=== PATIENT | female | born 1990 | race Caucasian/White ===

== ENCOUNTER 2017-07-17 09:36 | Emergency (ER) | payer OTHER ==
[~2017-07-17] VITALS: Ht 154.9 cm; Wt 77.1 kg
--- NOTE | 2017-07-17 10:17 | ED GI/GU/ABDOMINAL COMPLAINT ---
History of Present Illness General Chief Complaint: Abdominal Pain/Flank Pain Stated Complaint: ABD PAIN/BLEEDING 6 WEEKS Source: patient Exam Limitations: no limitations Allergies Coded Allergies: No Known Allergies (07/17/17) Triage Note: PT TO ED C/O VAGINAL BLEEDING SINCE THIS AM. STATES SHE IS 6 WEEKS , SEE'S DR HALEY. C/O ABD CRAMPING THAT COMES AND GOES. . Triage Nurses Notes Reviewed? yes ? Y Is pt currently ? No HPI: 27 year old female with PMH significant for PCOS presents with complaints of vaginal bleeding and crampy lower abdominal pain that started this morning. The patient had a recently confirmed , patient of Dr. Haley's. The patient took a home test, estimated 6 weeks by LMP, and had a confirmed intrauterine by transvaginal ultrasound on 07/10/17. No history of STI, or PID. Patient last had sexual intercourse two days prior to presentation. She has had some mild intermittent crampy lower abdominal pain for the past two weeks but this morning she woke up and it was more severe, 7/10, non radiating, currently only a 1/10. The abdominal pain was sudden and severe on awakening this morning approximately 7AM, with no identifiable aggravating factors. The pain seemed to improve on its own but she said she did get some relief with a heating pad. She got up to use the bathroom and noticed pink in the toilet and dark blood when she wiped. She states she didn't saturate the toilet paper but was still bleeding as she continued to wipe. She is currently wearing a pad that has some scant dark dried blood. She denied any blood clots. She did notice some blood in her underwear but because of their dark color it was hard for her to estimate the amount. She has no other complaints at this time but is visibly anxious. (Virgen POLLOCK,Bean) Vital Signs & Intake/Output Vital Signs & Intake/Output Vital Signs Date Time Temp Pulse Resp B/P B/P Pulse O2 O2 Flow FiO2 Mean Ox Delivery Rate 07/17 1304 98.3 74 20 115/89 98 Room Air 07/17 0939 98.5 111 20 128/84 97 Room Air (Una POLLOCK,Avery Chun) Past History Travel History Traveled to [place] past 21 day No Medical History Any Pertinent Medical History? see below for history CAD SPECIALIST/Reproductive: PCOS Surgical History Surgical History: non-contributory, dental extraction Psychosocial History What is your primary language [place]ar[place]uan Tobacco Use: Never used ETOH Use: denies use Illicit Drug Use: denies illicit drug use Family History Hx Contributory? No (Bean New MD) Review of Systems Review of Systems Constitutional: Reports: no symptoms. EENTM: Reports: no symptoms. Respiratory: Reports: no symptoms. Cardiovascular: Reports: no symptoms. GI: Reports: abdominal pain. Genitourinary: Reports: no symptoms. Musculoskeletal: Reports: no symptoms. Skin: Reports: no symptoms. Neurological/Psychological: Reports: anxiety. Hematologic/Endocrine: Reports: bleeding. Immunologic/Allergic: Reports: no symptoms. All Other Systems: Reviewed and Negative (Bean New MD) Physical Exam Physical Exam General Appearance: well developed/nourished, no apparent distress, alert, awake , anxious Head: atraumatic, normal appearance Eyes: Bilateral: normal appearance, PERRL, EOMI. Ears, Nose, Throat, Mouth: hearing grossly normal, moist mucous membrane Respiratory: normal breath sounds, chest non-tender, no respiratory distress, quiet respiration, lungs clear Cardiovascular: regular rate/rhythm, normal peripheral pulses Gastrointestinal: normal bowel sounds, soft, MILD SUPRAPUBIC TENDERNESS ON PALP Pelvic: unable to palpate cervix on bimanual exam, + blood in vaginal vault Extremities: normal range of motion Neurologic/Psych: no motor/sensory deficits, awake, alert, oriented x 3 Core Measures ACS in differential dx? No Sepsis Present: No Sepsis Focused Exam Completed? No (Bean New MD) Progress Differential Diagnosis: ectopic , intrauterine , ovarian cyst, ovarian torsion, PID/cervicitis, threatened AB, miscarriage Initial ED EKG: none Comments: Talked with Shaping Machine Operator Nehal No with Dr. Brown's practice. Ultrasound findings suggestive of threatened in first trimester. Patient will leave [facility] and go to Dr. Brown's office today for further management. (Bean New MD) Plan of Care: Orders Procedure Date/time Status Add-on Test (ER Only) 07/17 1123 Active HUMAN BETA HCG TITRE 07/17 1049 Complete TYPE & SCREEN (NOT X-MATCH) 07/17 1026 Complete PARTIAL THROMBOPLASTIN TIME 07/17 1018 Complete PROTHROMBIN TIME 07/17 1018 Complete CBC WITHOUT DIFFERENTIAL 07/17 1018 Complete BASIC ELECTROLYTES PLUS BUN&CR 07/17 1018 Complete Add-on Test (ER Only) 07/17 1017 Active CULTURE,URINE 07/17 954 Active URINE 07/17 954 Complete URINALYSIS 07/17 954 Complete Laboratory Tests 07/17/17 1049: Anion Gap 13, Estimated GFR > 60, BUN/Creatinine Ratio 15.0, Beta HCG, Quant 1580.2, PT 11.7, INR 1.12, APTT 31, CBC w Diff MAN DIFF ORDERED, RBC 5.05, MCV 85.7, MCH 29.3, RDW 13.3, MPV 9.2, Gran % 72.9, Lymphocytes % 20.0 L, Monocytes % 4.9, Eosinophils % 0.7, Basophils % 1.5, Absolute Granulocytes 11.8 H, Segmented Neutrophils 69, Band Neutrophils 3, Absolute Lymphocytes 3.2, Lymphocytes 25, Monocytes 3, Absolute Monocytes 0.8 H, Absolute Eosinophils 0.1 , Absolute Basophils 0.2, Platelet Estimate VERIFIED BY SMEAR, Normocytic RBCs VERIFIED, Normochromic RBCs VERIFIED, PUBS MCHC 34.2 07/17/17 1026: Beta HCG, Quant Cancelled 07/17/17 09: Urine Test POSITIVE 07/17/17954: Urine Color YEL, Urine Clarity HAZY H, Urine pH 6.5, Ur Specific [place] 1.010, Urine Protein TRACE H, Urine Ketones NEG, Urine Nitrite NEG, Urine Bilirubin NEG, Urine Urobilinogen 0.2, Ur Leukocyte Esterase SMALL H, Ur Microscopic SEDIMENT EXAMINED, Urine RBC 10-15 H, Urine WBC 1-3 H, Ur Epithelial Cells MANY H, Urine Bacteria FEW H, Urine Hemoglobin LARGE H, Urine Glucose NEG Microbiology 07/17 954 URINE ROUT: Urine Culture - RECD Diagnostic Imaging: Discussed w/RAD: Ultrasound. Radiology Impression: PATIENT: VANE HOWELL PRESENT AGE: 27 PATIENT ACCOUNT NO: [id number] : 92 LOCATION: [facility] ORDERING PHYSICIAN: Bean New MD SERVICE DATE: 07/17/17 EXAM TYPE: US - US TRANSVAG EXAMINATION: ULTRASOUND OF THE PELVIS/ ULTRASOUND CLINICAL INFORMATION: Vaginal bleeding. Patient states pelvic cramping for the last few days with onset of vaginal bleeding this morning. COMPARISON: None TECHNIQUE: Transabdominal and transvaginal pelvic ultrasound. A transvaginal study was performed in addition to the transabdominal study which did not yield an adequate examination of the uterus, endometrial stripe, and ovaries due to superimposed distended gas-filled loops of bowel. FINDINGS: Based on the patient 's last menstrual period of 05/31/2017, a 6 week 5 day gestation is expected with an estimated date of delivery of 03/07/2018. Uterus: The uterus is anteverted and normal in size, measuring 9.2 x 2.6 x 2.8 cm. The endometrial stripe thickness in the uterine fundus is normal, measuring 0.5 cm in thickness. In the lower uterine segment, a amorphous mixed echogenicity cystic and solid mass is seen, measuring 1.2 x 0.8 x 1.1 cm in size. This may represent an abnormal gestational sac. No internal yolk sac, pole or definite gestational sac is identified. The cervical length is normal measuring 2.8 cm. Trace amount of endocervical free fluid is seen. Ovaries: The ovaries bilaterally are visualized and appear normal, with the right ovary measuring 2.6 x 1.5 x 2.3 cm and the left ovary measuring 3.4 x 1.5 x 2.5 cm. With color Doppler imaging, normal arterial and venous flow to the ovaries bilaterally is seen. Other: No adnexal mass or free fluid collection seen. IMPRESSION: 1. No normal intrauterine gestational sac is identified. 2. There is a amorphous mixed echogenicity cystic and solid mass seen in the lower uterine segment, possibly an abnormal gestational sac. Findings may represent in progress ( especially when seen in conjunction with the trace amount of endocervical free fluid) versus hemorrhage into an intrauterine gestational sac. Close clinical/ lab correlation is requested with serial ultrasound to reassess these findings. 3. Ovaries normal. 4. No significant free fluid. DICTATED BY: Sylvia Sandoval MD DATE/TIME DICTATED:07/17/171308 ONCOLOGY RESEARCH RN:MAMI DATE/TIME TRANSCRIBED:07/17/171308 CONFIDENTIAL, DO NOT COPY WITHOUT APPROPRIATE AUTHORIZATION. <Electronically signed in Other Vendor System> SIGNED BY: Sylvia Sandoval MD 07/17/17 0194 (Una POLLOCK,Avery D.) Departure Departure Time of Disposition: 1341 Disposition: HOME OR SELF CARE Condition: Stable Clinical Impression Primary Impression: Vaginal bleeding before 22 weeks gestation Referrals: Patient Has No Primary Care Dr (PCP/Family) Glenn Kebede MD Additional Instructions: Follow up with your primary care physician and your wireline operator Dr. Haley. Departure Forms: Customer Survey General Discharge Information (Vir[employer] POLLOCK,Bean) Resident Co-Sign Statement Statement: ED Attending supervision documentation- [X] I saw and evaluated the patient. I have also reviewed all the pertinent lab results and diagnostic results. I agree with the findings and the plan of care as documented in the Resident's documentation. [] I have reviewed the ED Record and agree with the Resident's documentation. [] Additions or exceptions (if any) to the Resident's note and plan are summarized below: [] (Una POLLOCK,Avery Chun)
[2017-07-17 11:04] LABS: ABSOLUTE BASOPHIL COUNT 0.2 /CUMM (0.0-0.2); ABSOLUTE EOSINOPHIL COUNT 0.1 /CUMM (0.0-0.7); ABSOLUTE GRANULOCYTE CT 11.8 /CUMM (1.4-6.5); ABSOLUTE LYMPH COUNT 3.2 /CUMM (1.2-3.4); ABSOLUTE MONOCYTE COUNT 0.8 /CUMM (0.10-0.60); BASOPHIL % 1.5 % (0.0-2.0); EOSINOPHIL % 0.7 % (0-5); GRANULOCYTE % 72.9 % (42.2-75.2); HEMATOCRIT 43.3 % (37-47); MEAN CORPUSCULAR HGB 29.3 PG (27.0-31.0); MEAN CORPUSCULAR HGB CONC 34.2 G/DL (33.0-37.0); MEAN CORPUSCULAR VOLUME 85.7 FL (81.0-99.0); MEAN PLATELET VOLUME 9.2 FL (7.4-10.4); PLATELET COUNT 330 /CUMM (130-400); RBC DISTRIBUTION WIDTH 13.3 % (11.5-14.5); RED BLOOD CELL CT 5.05 /CUMM (4.20-5.40); WHITE BLOOD CELL COUNT 16.2 /CUMM (4.8-10.8)
[2017-07-17 11:15] LABS: PT 11.7 SEC (9.4-12.5); PTT 31 SEC (25-37)
[2017-07-17 13:04] VITALS: BP 115/89
--- NOTE | 2017-07-17 13:24 | ULTRASOUND REPORT ---
EXAMINATION: ULTRASOUND OF THE PELVIS/ ULTRASOUND CLINICAL INFORMATION: Vaginal bleeding. Patient states pelvic cramping for the last few days with onset of vaginal bleeding this morning. COMPARISON: None TECHNIQUE: Transabdominal and transvaginal pelvic ultrasound. A transvaginal study was performed in addition to the transabdominal study which did not yield an adequate examination of the uterus, endometrial stripe, and ovaries due to superimposed distended gas-filled loops of bowel. FINDINGS: Based on the patient's last menstrual period of 05/31/2017, a 6 week 5 day gestation is expected with an estimated date of delivery of 03/07/2018. Uterus: The uterus is anteverted and normal in size, measuring 9.2 x 2.6 x 2.8 cm. The endometrial stripe thickness in the uterine fundus is normal, measuring 0.5 cm in thickness. In the lower uterine segment, a amorphous mixed echogenicity cystic and solid mass is seen, measuring 1.2 x 0.8 x 1.1 cm in size. This may represent an abnormal gestational sac. No internal yolk sac, pole or definite gestational sac is identified. The cervical length is normal measuring 2.8 cm. Trace amount of endocervical free fluid is seen. Ovaries: The ovaries bilaterally are visualized and appear normal, with the right ovary measuring 2.6 x 1.5 x 2.3 cm and the left ovary measuring 3.4 x 1.5 x 2.5 cm. With color Doppler imaging, normal arterial and venous flow to the ovaries bilaterally is seen. Other: No adnexal mass or free fluid collection seen. IMPRESSION: 1. No normal intrauterine gestational sac is identified. 2. There is a amorphous mixed echogenicity cystic and solid mass seen in the lower uterine segment, possibly an abnormal gestational sac. Findings may represent in progress (especially when seen in conjunction with the trace amount of endocervical free fluid) versus hemorrhage into an intrauterine gestational sac. Close clinical/lab correlation is requested with serial ultrasound to reassess these findings. 3. Ovaries normal. 4. No significant free fluid.
== END 2017-07-17 14:02 ==
LOC: ERH 09:36
DX: O20.9 Hemorrhage in early pregnancy, unspecified (principal); Z3A.01 Less than 8 weeks gestation of pregnancy
CPT/HCPCS: 76817; 81001; 81025; 82436; 87086

== ENCOUNTER → 2017-08-27 | Day surgery (SDC) | payer OTHER ==
--- NOTE | 2017-08-26 18:44 | History & Physical Pre-Op ---
General Information and HPI History of Present Illness: 27-year-old 1 para 0 with an 8 week incomplete presents for suction D&C. A missed was first noted on July 10 the patient desired to have spontaneous miscarriage however she still has remaining tissue within the uterine cavity and is now requiring suction D&C for completion. Allergies/Medications Allergies: Coded Allergies: No Known Allergies (07/17/17) Past History Medical History CHIEF COMMUNICATIONS OFFICER/Reproductive: PCOS Surgical History Pertinent Surgical History: non-contributory, dental extraction Review of Systems Review of Systems Constitutional: Reports: no symptoms. EENTM: Reports: no symptoms. Cardiovascular: Reports: no symptoms. Respiratory: Reports: no symptoms. GI: Reports: no symptoms. Genitourinary: Reports: no symptoms. Musculoskeletal: Reports: no symptoms. Skin: Reports: no symptoms. Neurological/Psychological: Reports: no symptoms. Hematologic/Endocrine: Reports: no symptoms. Immunologic/Allergic: Reports: no symptoms. All Other Systems: Reviewed and Negative Exam & Diagnostic Data Last 24 Hrs of Vital Signs/I&O . Stable Physical Exam: HEENT: Normocephalic atraumatic Chest: Clear to auscultation bilaterally Cardiovascular: Normal S1, S2 Pelvic: Deferred to the OR Extremities: No clubbing cyanosis or edema Assessment/Plan Assessment/Plan: Incomplete Plan: Suction D&C RhoGAM if needed As Ranked By This Provider Problem List: 1. Incomplete
--- NOTE | 2017-08-27 08:48 | Operative Report ---
Operative/Inv Procedure Report Surgery Date: 08/27/17 Name of Procedure: Suction D&C Pre-Operative Diagnosis: Incomplete Post-Operative Diagnosis: Same Estimated Blood Loss: scant Surgeon/Dental Surgery Doctor: Glenn Kebede MD Anesthesia: laryngeal mask airway Operative/Procedure Note Note: The patient was brought to the operating room placed on the OR table in the dorsal supine position. She was given adequate anesthesia and intubated with an LMA. She was repositioned into modified dorsal lithotomy and prepped and draped in the usual sterile fashion. A weighted speculum was inserted into the vagina and with the help of a [place] retractor single-tooth tenaculum was attached to the anterior lip of the cervix. The cervix was injected with 1% lidocaine with epinephrine to have cc in each quadrant. The cervix was serially dilated to accommodate an 8 mm suction curette. This was placed into the uterus and activated. A small amount of products of conception were removed with minimal bleeding. Sharp curettage followed revealing no remaining tissue. One final pass of the suction curet again revealed no remaining products of conception. The instruments were removed patient was awakened and sent to recovery in good condition. All needle, sponge, and instrument counts were correct at the end of the procedure 2.
== END ==
LOC: STS 02:00
DX: O03.4 Incomplete spontaneous abortion without complication (principal)
CPT/HCPCS: 88305; J2250